=== PATIENT | female | born 2000 | race Two or more races ===

== ENCOUNTER 2024-12-24 11:39 | Inpatient (IN) | payer MEDICAID ==
[~2024-12-24] VITALS: Ht 157.5 cm; Wt 68.0 kg
[2024-12-24] MEDS ORDERED: LIDOCAINE 2%HCL (LOCAL ANESTH.) INJ 20ML MDV IJ PRN (13:15)
[2024-12-24] MEDS ORDERED: BUTORPHANOL TARTRATE 2 MG/1 ML VIAL IV PRN ×2 (13:15)
[2024-12-24 13:39] LABS: Basophils # (auto) 0.1 10 ^3/uL (0-0.2); Basophils % (auto) 0.8 % (0.0-2.0); Eosinophils # (auto) 0.1 10 ^3/uL (0-0.8); Eosinophils % (auto) 0.6 % (0.0-7.0); Hematocrit 35.7 % (36.0-46.0); Hemoglobin 12.2 g/dL (12.2-16.2); Lymphocytes % (auto) 23.5 % (10.0-50.0); Mean Corpuscular Hemoglobin 30.7 pg (28.0-32.0); Mean Corpuscular Hgb Conc. 34.3 g/dL (32.0-36.0); Mean Corpuscular Volume 89.6 fL (80.0-100.0); Monocytes # (auto) 0.7 10 ^3/uL (0-1.3); Monocytes % (auto) 8.4 % (0.0-12.0); Neutrophils # (auto) 5.6 10 ^3/uL (1.6-8.6); Neutrophils % (auto) 66.7 % (37.0-80.0); Platelet Count (auto) 186 10^3/uL (140-450); Red Blood Cells 3.98 10^6/uL (4.0-5.20); Red Cell Distribution Width 15.4 % (11.8-14.3); White Blood Cell 8.4 10^3/uL (4.4-10.8)
[2024-12-24] MEDS: LACTATED RINGER'S 1,000 ML IV SCH (13:39)
[2024-12-24 13:48] LABS: Urine Bacteria FEW /hpf (None Seen); Urine Blood 3+ /uL (Negative); Urine Budding Yeast OCCASIONAL /hpf (None Seen); Urine Color Yellow (Yellow); Urine Mucus FEW (None Seen); Urine Protein, UAD 1+ (Negative); Urine Specific Gravity 1.022 (1.001-1.035); Urine Squamous Epithelial Cell MOD /hpf (<5); Urine Urobilinogen Normal (Negative); Urine WBC 10 /HPF (0-5)
[2024-12-24 13:49] LABS: Urine Clarity Hazy (Clear)
[2024-12-24 13:51] LABS: Fern Testing Positive
[2024-12-24 13:54] LABS: Amphetamine Screen, Urine Neg (NEGATIVE); Barbiturate Scree,Urine Neg (NEGATIVE); Benzodiazephine Screen, Urine Neg (NEGATIVE); Cannabinoid Screen, Urine Neg (NEGATIVE); Cocaine Screen, Urine Neg (NEGATIVE); Opiate Scree,Urine Neg (NEGATIVE); Phencyclidine Screen, Urine Neg (NEGATIVE)
[2024-12-24 13:55] LABS: INR 0.93 (0.9-1.15); Partial Thromboplastin Time 25.9 SEC (24.5-34.5); Prothrombin Time 9.9 sec (9.3-11.8)
[2024-12-24 13:56] LABS: Alanine Aminotransferase 15 U/L (7-40); Anion Gap 10 (5-15); Aspartate Aminotransferase 18 U/L (13-40); BUN/Creatinine Ratio 12.7 (10.0-20.0); Bilirubin, Total 0.5 mg/dL (0.2-1.0); Calcium 9.3 mg/dL (8.7-10.4); Carbon Dioxide 23 mmol/L (20-31); Chloride 104 mmol/L (98-107); Glucose 82 mg/dL (74-106); Sodium 137 mmol/L (136-145); Total Protein 6.8 g/dL (5.7-8.2)
--- NOTE | 2024-12-24 13:58 | DVHHP2 ---
OB CC & HPI Date Date of Admission: December 24, 2024 Patient Identification: : 1 Para: 0 EDC: January 06, 2025 EGA: 38.1 Chief Complaints: Reason for admission: rupture of membranes History of Present Complaints 24y G1Po IUP 38.1 wk Presented with spontaneous PROM. RN noted meconium fluid. Mild contractions , no bleeding has been uncomplicated, PNL care w/ Dr [facility]. Past Medical History Cardiac: No pertinent Hx Pulmonary: No pertinent Hx Central Nervous System: No pertinent Hx GI: No pertinent Hx Hemotology/Oncology: No pertinent Hx Hepatobiliary: No pertinent Hx Psychiatric: No pertinent Hx Musculoskeletal: No pertinent Hx Rheumotologic: No pertinent Hx Infectious Disease: No peritnent Hx ENT: No pertinent Hx Renal/: No pertinent Hx Endocrine: No pertinent Hx Dermatology: No pertinent Hx Past Surgical History: No pertinent Hx OB History OB History Care: Good Care Ultrasounds: Normal mid trimester US Obstetrical Complications: None Medical Complications: None Allergies: Coded Allergies: NO KNOWN ALLERGIES (Unverified , 12/24/24) Current Medications Current Medications Medications (Trade) Dose Ordered Sig/Herrera Route PRN Reason Start Time Stop Time Status Last Admin Lactated Ringer's 1,000 ml @ 125 mls/hr Q8H IV 12/24/24 13:15 12/24/24 13:39 Witch Shahla (Tucks) 1 pad PRN PRN TOP PERINEAL AREA DISCOMFORT 12/24/24 13:15 Sodium Lauryl Sulfate (Phisoderm) 240 ml PRN PRN TOP PERINEAL AREA DISCOMFORT 12/24/24 13:15 Benzocaine (Dermoplast) 1 applic PRN PRN TOP PERINEAL AREA DISCOMFORT 12/24/24 13:15 Butorphanol Tartrate (Stadol Injection) 1 mg Q4HPRN PRN IV MODERATE PAIN (4-6 PAIN SCALE) 12/24/24 13:15 Butorphanol Tartrate (Stadol Injection) 2 mg Q4HPRN PRN IV SEVERE PAIN (7-10 PAIN SCALE) 12/24/24 13:15 Lidocaine HCl (Xylocaine) 20 ml ONCE PRN IJ PERINEAL AREA DISCOMFORT 12/24/24 13:15 Review of Systems Constitutional: No symptom reported Ears, Nose, & Throat: No symptom reported Eyes: No symptom reported Pulmonary/Respiratory: No symptom reported Cardiovascular: No symptom reported Gastrointestinal: No symptom reported Genitourinary: No symptom reported Musculoskeletal: No symptom reported Skin: No symptom reported Psychiatric: No symptom reported Endocrine: No symptom reported Hemotologic/Lymphatic: No symptom reported OB Admission Exam Physical Exam Vitals: Afeb VS Stable HEENT: NCAT Heart: Rhythm Normal Lungs: Clear Abdomen: Gravid Extremities: Normal Reflexes: Normal Pelvic Exam: RN exam Cervical Dilatation: 1cm Effacement: 50% Station: -2 Membranes: Ruptured Amniotic Fluid: Thick Meconium Heart Rate: 130's Accelerations: Accelerations Present Decelerations: No Decelerations Short Term Variability: Present Dining Room Manager Variability: Average (6-25) Contractions on Admission: >10 Minutes Apart Intensity: Mild OB Plan Plan Admitting Diagnosis: 24y G1PO IUP 38.1 w, SROM Plan: Induction Induction Methd: Misoprostol protocol (PO ) Other Plan: Admit for labor and delivery Informed consent obtained for treatment and delivery. Epidural vs IV analgesia discussed for pain management Visit Coding OBGYN Date of Service: December 24, 2024 Billing Provider: HEATH WILDER DO PAPER AND PULP MILL WORKER Common Visit Codes: [id number] INP/OBS CARE (HIGH) HEATH WILDER DO December 24, 2024 13:58
[2024-12-24 13:59] LABS: Alkaline Phosphatase 187 U/L (46-116); Blood Urea Nitrogen 7 mg/dL (9-23)
[2024-12-24] MEDS: miSOPROStol 50 MCG per PRE-CUT 1/2 TAB PO PRN (15:28)
[2024-12-24] MEDS: PHISODERM TOP SOLN 240ML BTL TOP PRN (22:25)
[2024-12-24] MEDS: WITCH HAZEL-GLYCERIN PAD TOP PRN (22:25)
[2024-12-24] MEDS: ceFAZolin 2 GM/D5W50ml 50 ML IV ONE (22:26)
[2024-12-24] MEDS: DERMOPLAST 60ML BOTTLE TOP PRN (22:26)
[2024-12-24] MEDS ORDERED: NALBUPHINE HCL 10 MG/1ml INJECTION IV PRN (22:30)
[2024-12-25] MEDS: ceFAZolin 1GM/50ML 50 ML IV SCH (06:15)
[2024-12-25] MEDS: NALBUPHINE HCL 10 MG/1ml INJECTION IM PRN (06:38)
[2024-12-25] MEDS: LACT. RINGERS/OXYTOCIN 20UNITS 1,000 ML IV SCH (07:59)
[2024-12-25] MEDS ORDERED: ONDANSETRON HCL 4 MG/2 ML VIAL IV PRN (12:00)
[2024-12-25] MEDS: LACTATED RINGER'S 500 ML IV ONE (13:00)
[2024-12-25] MEDS: ROPIVACAINE HCL 200 ML ONE (14:23)
[2024-12-25] MEDS ORDERED: ACETAMINOPHEN 500 MG TAB or CAP PO ONE (20:30)
[2024-12-25] MEDS: ACETAMINOPHEN 325 MG TAB PO ONE (20:31)
--- NOTE | 2024-12-25 20:54 | DVHPN2 ---
OB Labor Progress Note Date and Time Seen Date Seen: December 25, 2024 Time Seen: 20:52 Subjective Patient reports: No new complaints, Feels better Objective Vital Signs Afeb VS stable Monitoring Method Monitoring Method: External Heart Rate Heart Rate Baseline: 130 Heart Rate Variability: Moderate Presence of FHR Accelerations: Yes Presence of FHR Decelerations: No Contractions Contractions Intensity: Strong Contractions Resting Tone: Relaxed Membranes Membranes: Ruptured Vaginal Exam Vag Exam Deferred: No Vaginal Exam Dilation: 10 Vaginal Exam Effacement: 100 Vaginal Exam Station: +1 Vaginal Exam Presentation: VTX Vaginal Exam Show: None Medications Medications - Pitocin: Yes Medication - Epidural: Yes Lab Results Lab Results Vital Signs Date Time Temp Pulse Resp B/P (MAP) Pulse Ox O2 Delivery O2 Flow Rate FiO2 12/25/24 20:31 100.5 12/25/24 07:52 80 18 105/63 Current Medications Medications (Trade) Dose Ordered Sig/Herrera Start Time Stop Time Status Last Admin Dose Admin Lactated Ringer's 1,000 ml @ 125 mls/hr Q8H 12/24/24 13:15 12/25/24 13:45 125 MLS/HR Witch Shahla (Tucks) 1 pad PRN PRN 12/24/24 13:15 12/24/24 22:25 1 PAD Sodium Lauryl Sulfate (Phisoderm) 240 ml PRN PRN 12/24/24 13:15 12/24/24 22:25 240 ML Benzocaine (Dermoplast) 1 applic PRN PRN 12/24/24 13:15 12/24/24 22:26 1 APPLIC Butorphanol Tartrate (Stadol Injection) 1 mg Q4HPRN PRN 12/24/24 13:15 12/24/24 22:18 DC Butorphanol Tartrate (Stadol Injection) 2 mg Q4HPRN PRN 12/24/24 13:15 12/24/24 22:18 DC Lidocaine HCl (Xylocaine) 20 ml ONCE PRN 12/24/24 13:15 Oxytocin 500 ml @ 999 mls/hr Q31M ONCE 12/24/24 13:15 12/24/24 13:45 DC Oxytocin 500 ml @ 125 mls/hr Q4H ONCE 12/24/24 13:45 12/24/24 17:44 DC Misoprostol (Cytotec) 50 mcg Q4HPRN PRN 12/24/24 15:00 12/25/24 03:41 50 MCG Cefazolin Sodium/ Dextrose 50 ml @ 50 mls/hr ONCE ONCE 12/24/24 22:15 12/24/24 23:14 DC 12/24/24 22:26 50 MLS/HR Cefazolin Sodium 50 ml @ 100 mls/hr Q8HR 12/25/24 06:00 12/25/24 14:20 100 MLS/HR Nalbuphine HCl (Nubain) 10 mg Q4HP PRN 12/24/24 22:30 12/25/24 06:38 10 MG Nalbuphine HCl (Nubain) 10 mg Q4HP PRN 12/24/24 22:30 12/25/24 11:58 DC Oxytocin 1,000 ml @ 6 ml/hr Q24H 12/25/24 08:00 12/25/24 07:59 6 ML/HR Ondansetron HCl (Zofran) 4 mg Q4HP PRN 12/25/24 12:00 Naloxone HCl (Narcan) 0.2 mg PRN ONCE 12/25/24 13:00 12/25/24 13:06 DC Ephedrine Sulfate (ePHEDrine SULFATE) 50 mg PRN ONCE 12/25/24 13:00 12/25/24 13:06 DC Lactated Ringer's 500 ml @ 500 mls/hr Q1H ONCE 12/25/24 13:00 12/25/24 13:59 DC 12/25/24 13:00 500 MLS/HR Acetaminophen (Tylenol Tablet) 650 mg ONCE ONCE 12/25/24 20:15 12/25/24 20:28 DC 12/25/24 20:31 650 MG Acetaminophen (Tylenol Tablet Or Capsule) 650 mg ONCE ONCE 12/25/24 20:30 12/25/24 20:28 DC Laboratory Tests Test 12/24/24 13:15 12/24/24 13:11 12/24/24 13:00 Range/Units White Blood Count 8.4 4.4-10.8 10^3/uL Red Blood Count 3.98 L 4.0-5.20 10^6/uL Hemoglobin 12.2 12.2-16.2 g/dL Hematocrit 35.7 L 36.0-46.0 % Mean Corpuscular Volume 89.6 80.0-100.0 fL Mean Corpuscular Hemoglobin 30.7 28.0-32.0 pg Mean Corpuscular Hemoglobin Concent 34.3 32.0-36.0 g/dL Red Cell Distribution Width 15.4 H 11.8-14.3 % Platelet Count 186 140-450 10^3/uL Mean Platelet Volume 9.7 6.9-10.8 fL Neutrophils (%) (Auto) 66.7 37.0-80.0 % Lymphocytes (%) (Auto) 23.5 10.0-50.0 % Monocytes (%) (Auto) 8.4 0.0-12.0 % Eosinophils (%) (Auto) 0.6 0.0-7.0 % Basophils (%) (Auto) 0.8 0.0-2.0 % Neutrophils # (Auto) 5.6 1.6-8.6 10 ^3/uL Lymphocytes # (Auto) 2.0 0.4-5.4 10 ^3/uL Monocytes # (Auto) 0.7 0-1.3 10 ^3/uL Eosinophils # (Auto) 0.1 0-0.8 10 ^3/uL Basophils # (Auto) 0.1 0-0.2 10 ^3/uL Nucleated Red Blood Cells 0.0 % Prothrombin Time 9.9 9.3-11.8 sec Prothrombin Time INR 0.93 0.9-1.15 Activated Partial Thromboplast Time 25.9 24.5-34.5 SEC Sodium Level 137 136-145 mmol/L Potassium Level 4.0 3.5-5.1 mmol/L Chloride Level 104 98-107 mmol/L Carbon Dioxide Level 23 20-31 mmol/L Anion Gap 10 5-15 Blood Urea Nitrogen 7 L 9-23 mg/dL Creatinine 0.55 0.550-1.02 mg/dL Glomerular Filtration Rate Calc 131 >90 mL/min BUN/Creatinine Ratio 12.7 10.0-20.0 Serum Glucose 82 74-106 mg/dL Calcium Level 9.3 8.7-10.4 mg/dL Total Bilirubin 0.5 0.2-1.0 mg/dL Aspartate Amino Transferase (AST) 18 13-40 U/L Alanine Aminotransferase (ALT) 15 7-40 U/L Alkaline Phosphatase 187 H 46-116 U/L Total Protein 6.8 5.7-8.2 g/dL Albumin 4.0 3.2-4.8 g/dL Treponema pallidum Antibody Non-reactive Negative Urine Color Yellow Yellow Urine Clarity Hazy H Clear Urine pH 7.0 5.0-9.0 Urine Specific [place] 1.022 1.001-1.035 Urine Protein 1+ H Negative Urine Ketones Negative Negative Urine Blood 3+ H Negative /uL Urine Nitrite Negative Negative Urine Bilirubin Negative Negative Urine Urobilinogen Normal Negative mg/dL Urine Leukocyte Esterase Trace Negative /uL Urine RBC 16 0 - 4 /hpf Urine Microscopic WBC 10 H 0-5 /HPF Urine Squamous Epithelial Cells Mod <5 /hpf Urine Bacteria Few H None Seen /hpf Urine Mucus Few None Seen Urine Yeast (Budding) Occasional None Seen /hpf Urine Glucose Normal Normal mg/dL Urine Opiates Screen Neg NEGATIVE Urine Fentanyl Screen Neg NEGATIVE Urine Barbiturates Screen Neg NEGATIVE Urine Phencyclidine Screen Neg NEGATIVE Urine Amphetamines Screen Neg NEGATIVE Urine Benzodiazepines Screen Neg NEGATIVE Urine Cocaine Screen Neg NEGATIVE Urine Cannabinoids Screen Neg NEGATIVE Amniotic Fluid Ferning Test Positive Assessment Assessment Term , SROM status reassuring Plan Plan Anticipated Plan discussed with: Patient Visit Coding OBGYN Date of Service: December 25, 2024 Billing Provider: HEATH WILDER DO ART CLASS MODEL Common Visit Codes: [id number] INP/OBS CARE(HIGH) HEATH WILDER DO December 25, 2024 20:54
[2024-12-25] MEDS: METHYLERGONOVINE MALEATE 0.2 MG/ML AMP IM ONE (23:38)
[2024-12-26] VITALS (8 sets, daily range): BP systolic 95–109; BP diastolic 54–69; PULSE 78–92; RESP 16–18; TEMP 98.5–99; O2SAT 96–99
--- NOTE | 2024-12-26 00:07 | LDN2 ---
Labor and Delivery Note Date 12/26/24 Age 24 1 Para 1 AB 0 EGA 38.3 Diagnosis Active labor SROM Vaginal Delivery: VTX Vacuum Assisted: No Placenta: Spontaneous Sex: Male Weight 7lb 14oz Apgars 9/9 Amniotic Fluid: Meconium Stained Anesthesia Epidural Episiotomy: No Extension: Yes Repaired with 3rd deg perineal lac, 3-0 chromic in layers Rectal mucosa not involved. Good rectal external sphincter tone at conclusion of repair EBL 400 mL Labs Blood Bank 12/24/24 13:15: Blood Type A POSITIVE Complications Uterine Atony, resolved with IM Methergine and IV Pitocin Conditions Stable Comments/Significant Med Tea Fetus with tachypnea and retractions Meconium delivery. PEDS team and respiratory present at delivery Cord gases NORMAL Visit Coding OBGYN Date of Service: December 25, 2024 Billing Provider: HEATH WILDER DO BALLAST INSPECTOR Common Visit Codes: PROCEDURE ONLY BALLAST INSPECTOR Procedure Codes: [id number] OB CARE,VAG DELIVERY (Repair of 3rd deg perineal laceration) HEATH WILDER DO December 26, 2024 00:07
[2024-12-26] MEDS: LACT. RINGERS/OXYTOCIN 20UNITS 500 ML IV ONE ×2 (01:14→01:15)
[2024-12-26] MEDS: ePHEDrine SULFATE 50 MG/ML AMP IV ONE (01:15)
[2024-12-26] MEDS ORDERED: ONDANSETRON ODT 4 MG TAB PO PRN (01:15)
[2024-12-26] MEDS ORDERED: ACETAMINOPHEN 325 MG TAB PO PRN (01:15)
[2024-12-26] MEDS: METHYLERGONOVINE MALEATE 0.2 MG/ML AMP IM ONE (01:17)
--- NOTE | 2024-12-26 02:07 | DVHPN2 ---
Progress Note Date Seen: December 26, 2024 Subjective PPD#1 s/p with 3rd deg laceration S: Pain controlled. Lochia minimal. vital signs Vital Sign Date Time Temp Pulse Resp B/P (MAP) Pulse Ox O2 Delivery O2 Flow Rate FiO2 12/25/24 21:35 100.0 12/25/24 07:52 80 18 105/63 medications Current Medications Medications Dose Ordered Sig/Herrera Route Start Time Stop Time Status Last Admin Dose Admin Lactated Ringer's 1,000 ml @ 125 mls/hr Q8H IV 12/24/24 13:15 12/25/24 21:00 125 MLS/HR Witch Shahla 1 pad PRN PRN TOP 12/24/24 13:15 12/24/24 22:25 1 PAD Sodium Lauryl Sulfate 240 ml PRN PRN TOP 12/24/24 13:15 12/24/24 22:25 240 ML Benzocaine 1 applic PRN PRN TOP 12/24/24 13:15 12/24/24 22:26 1 APPLIC Lidocaine HCl 20 ml ONCE PRN IJ 12/24/24 13:15 Misoprostol 50 mcg Q4HPRN PRN PO 12/24/24 15:00 12/25/24 03:41 50 MCG Cefazolin Sodium 50 ml @ 100 mls/hr Q8HR IV 12/25/24 06:00 12/25/24 21:51 100 MLS/HR Nalbuphine HCl 10 mg Q4HP PRN IM 12/24/24 22:30 12/25/24 06:38 10 MG Oxytocin 1,000 ml @ 6 ml/hr Q24H IV 12/25/24 08:00 12/25/24 07:59 6 ML/HR Ondansetron HCl 4 mg Q4HP PRN IV 12/25/24 12:00 Ibuprofen 600 mg Q6HP PRN PO 12/26/24 01:15 Acetaminophen 650 mg Q4HP PRN PO 12/26/24 01:15 Ondansetron HCl 4 mg Q4HPRN PRN PO 12/26/24 01:15 Docusate Sodium 200 mg HS PO 12/26/24 22:00 laboratory and microbiology Laboratory Tests 12/24/24 13:15 Test 12/24/24 13:15 Range/Units Serum Glucose 82 74-106 mg/dL Objective O: AFVSS Chest: heart and lung sounds normal. Abd soft, non-tender, fundus firm, BS, no rebound or guarding, Ext Neg Homans, Non-tender, edema Lochia - minimal Labs pending Assessment/Plan 24y s/p , 3rd deg lac Continue current care Check CBC this a.m D/C tomorrow Plan discussed with: Patient Visit Coding OBGYN Date of Service: December 26, 2024 Billing Provider: HEATH WILDER DO MACHINE HOSTLER Common Visit Codes: [id number] INP/OBS CARE(MOD) HEATH WILDER DO December 26, 2024 02:07
[2024-12-26] MEDS: IBUPROFEN 600 MG TAB PO PRN (02:35)
[2024-12-26] MEDS: NALOXONE HCL 0.4 MG/ML VIAL IV ONE (02:49)
[2024-12-26 08:52] LABS: Basophils # (auto) 0.1 10 ^3/uL (0-0.2); Basophils % (auto) 0.3 % (0.0-2.0); Eosinophils # (auto) 0 10 ^3/uL (0-0.8); Eosinophils % (auto) 0.1 % (0.0-7.0); Hematocrit 29.7 % (36.0-46.0); Hemoglobin 9.9 g/dL (12.2-16.2); Lymphocytes # (auto) 2.1 10 ^3/uL (0.4-5.4); Lymphocytes % (auto) 10.2 % (10.0-50.0); Mean Corpuscular Hemoglobin 30.2 pg (28.0-32.0); Mean Corpuscular Hgb Conc. 33.4 g/dL (32.0-36.0); Mean Corpuscular Volume 90.5 fL (80.0-100.0); Monocytes # (auto) 1.6 10 ^3/uL (0-1.3); Monocytes % (auto) 7.9 % (0.0-12.0); Neutrophils # (auto) 16.5 10 ^3/uL (1.6-8.6); Neutrophils % (auto) 81.5 % (37.0-80.0); Platelet Count (auto) 157 10^3/uL (140-450); Red Blood Cells 3.29 10^6/uL (4.0-5.20); Red Cell Distribution Width 15.9 % (11.8-14.3); White Blood Cell 20.2 10^3/uL (4.4-10.8)
[2024-12-26] MEDS ORDERED: ceFAZolin 2 GM/D5W50ml 50 ML IV ONE (16:30)
[2024-12-26] MEDS: ceFAZolin 2 GM/D5W50ml 50 ML IV ONE (16:51)
[2024-12-26] MEDS ORDERED: IBU600T PO (19:16)
[2024-12-26] MEDS ORDERED: DOCU-265 PO (19:16)
[2024-12-26] MEDS ORDERED: PREN-96 PO (19:16)
[2024-12-26] MEDS ORDERED: FER325T PO (19:16)
--- NOTE | 2024-12-26 19:18 | DVHDS2 ---
Obstetrics Discharge Summary Obstetrics Discharge Summary Date of Admission: December 24, 2024 Date of Discharge: December 26, 2024 Reason For Admission: PROM (meconium) Procedures: NST Intrapartum Procedures: Spontaneous vaginal deliv Procedures: Antibiotics, Hct/date: (12/26/24), Hgb/date: (12/26/24), Others (fundus at U/firm/midline, light lochia) Operative Complicat: Laceration (3rd deg perineal lac), Others (Perineum: edema noted, sutures intact, edges well approximated, no erythema noted. Pt instructed to apply ice pack and sand bag weight to the area to reduce edema.) Discharge Diagnosis: Term -Delivered Discharge Information: Activity (as tolerated, no heavy lifting and nothing in the vagina for 6 weeks), Diet (Routine), Medications (Rx sent), Instructions ( precautions and preeclampsia warning signs reviewed), Discharge to (Home, per pt request to go be with her baby at [facility]), Accompanied by (family), Discarge date (12/26/24) Visit Coding OBGYN Date of Service: December 26, 2024 Billing Provider: CELIO CUEVAS CNM POOL CLEANER Common Visit Codes: [id number] DISCH DAY <30MIN CELIO CUEVAS CNM December 26, 2024 19:18
[2024-12-26] MEDS: TETANUS-DIPTH-ACEL PERTUSSIS 0.5ML SYR Tdap IM ONE (20:11)
[2024-12-26] MEDS: MEASLES, MUMPS & RUBELLA VAC(MMRII) 0.5ML SC ONE (20:13)
[2024-12-26] MEDS ORDERED: DOCUSATE SOD 100 MG CAP PO SCH (22:00)
== END 2024-12-26 21:05 | disposition home or self-care (01) | DRG 542 ==
LOC: LDRP 11:39 → OBSVTOIN 13:00 → LDRP 13:05 → UNDODISIN 12-26 09:15
PROVIDERS: ADMIT Obstetrics & Gynecology; ATTEND Obstetrics & Gynecology
PROC: 0DQR0ZZ Repair Anal Sphincter, Open Approach (ICD-10-PCS; principal; 2024-12-25)
PROC: 10E0XZZ Delivery of Products of Conception, External Approach (ICD-10-PCS; 2024-12-25)
PROC: 3E0R3BZ Introduction of Anesthetic Agent into Spinal Canal, Percutaneous Approach (ICD-10-PCS; 2024-12-25)
PROC: 00HU33Z Insertion of Infusion Device into Spinal Canal, Percutaneous Approach (ICD-10-PCS; 2024-12-25)
DX: O77.0 Labor and delivery complicated by meconium in amniotic fluid (principal); Z37.0 Single live birth; O70.20 Third degree perineal laceration during delivery, unspecified; O42.02 Full-term premature rupture of membranes, onset of labor within 24 hours of rupture; Z3A.38 38 weeks gestation of pregnancy
CPT/HCPCS: 36415; 59025; 59409; 80053; 80307; 81001; 81002; 85025; 85610; 85730; 86780; 86850; 86900; 86901; 90471; 90472; 94760; 94762; 96360; 96361; 96365; 96366; 96372; 96375; G0378; J2590